=== PATIENT | male | born 1980 | race Caucasian/White ===

== ENCOUNTER 2021-08-17 10:04 | Emergency (ER) | payer MEDICAID, SELFPAY ==
--- NOTE | 2021-08-17 | ECG_ITS ---
Test Reason : CP Blood Pressure : / mmHG Vent. Rate : 074 BPM Atrial Rate : 074 BPM P-R Int : 120 ms QRS Dur : 090 ms QT Int : 348 ms P-R-T Axes : 073 -54 040 degrees QTc Int : 386 ms Normal sinus rhythm Left anterior fascicular block Abnormal ECG When compared with ECG of 06-SEP-2019 09:54, No significant change was found Referred By: Generic ED Physician Electronically Signed By:CHAD GLEZ
--- NOTE | ~2021-08-17 | XR_ITS ---
EXAMINATION: XR CHEST CLINICAL INFORMATION: Chest pain. COMPARISON: None TECHNIQUE: 2 views of the chest were obtained. FINDINGS: No significant abnormality is noted involving the heart, lungs, mediastinum, bony thorax or soft tissues. XR/XR chest 2V IMPRESSION: Unremarkable chest examination.
--- NOTE | ~2021-08-17 | US_ITS ---
EXAMINATION: US VENOUS ULTRASOUND WITH DOPPLER LOWER EXTREMITY, RIGHT CLINICAL INFORMATION: Right calf pain COMPARISON: None TECHNIQUE: Ultrasound of the deep veins is performed from the hip to the calf with compression sonography and color and pulse Doppler assessment. Spectral analysis with color-flow imaging is performed. FINDINGS: There is normal venous compression and respiratory variation and augmented flow. The visualized common femoral vein, superficial femoral vein, profunda femoral vein, popliteal vein, and the trifurcation region shows no evidence of deep venous thrombosis. There is no popliteal fossa cyst. US/US venous duplex LE RT IMPRESSION: No DVT demonstrated in the right lower extremity.
[2021-08-17 10:19] VITALS: BP 139/78; PULSE 93; RESP 18; TEMP 36.7; O2SAT 100; BMI 20.3
--- NOTE | 2021-08-17 11:00 | ED.GENADULT ---
HPI - General Adult General Chief complaint: Extremity Problem Stated complaint: leg pain - rule our DVT Time Seen by Provider: 08/17/21 10:41 Source: patient Mode of arrival: ambulatory Limitations: no limitations History of Present Illness HPI narrative: 40-year-old male with past medical history of asthma, a left lower extremity DVT not currently on anticoagulation here with complaints of right leg cramping and pain for 1-2 months. No injury or trauma. No swelling, redness or warmth. No fevers or chills. Patient tells me that he was diagnosed a left lower extremity DVT approximately 7 years ago which was unprovoked. He was on Coumadin for about 1 year and then this was discontinued by his primary care doctor. He is also complaining of some central chest pain which is worsened with deep breathing and movement. He tells me he has had this pain for about 1 year. He has been seen at [facility] and with a negative workup. He has not seen his primary care doctor for this. He denies any shortness of breath, fevers, chills, dizziness, nausea, vomiting, abdominal pain. Related Data Allergies Allergy/AdvReac Type Severity Reaction Status Date / Time cat dander [cats] Allergy Shortness Verified 08/17/21 10:19 of Breath dog dander [dogs] Allergy Shortness Verified 08/17/21 10:19 of Breath Review of Systems Review of Systems: Yes all other systems are reviewed and are negative Constitutional: Constitutional: Reports no additional constitutional complaints, Denies body ache(s), Denies chills, Denies fever(s), Denies headache(s) and Denies weakness Eyes: Eyes: Reports no additional eye complaints and Denies change in vision ENT: Reports system reviewed and no additional complaints, except as documented, Denies dizziness, Denies headache(s), Denies nasal congestion, Denies nasal discharge and Denies neck pain Cardiovascular: Cardiovascular: Reports no additional cardiovascular complaints, Reports chest pain, Denies leg edema and Denies dyspnea Comments: +calf pain Respiratory: Respiratory: Reports no additional respiratory complaints, Denies cough and Denies dyspnea Gastrointestinal: Gastrointestinal: Reports no additional gastrointestinal complaints, Denies abdominal pain, Denies diarrhea, Denies nausea and Denies vomiting Genitourinary: Genitourinary: Denies urinary incontinence Musculoskeletal: Musculoskeletal: Reports no additional musculoskeletal complaints, Denies back pain, Denies arthralgias, Denies joint swelling, Denies neck pain, Denies numbness and Denies tingling Integumentary/Breasts: Skin/Breast: Reports system reviewed and no additional complaints, except as docu and Denies rash Neurologic: Reports system reviewed and no additional complaints, except as documented, Denies Abnormal speech present, Denies dizziness, Denies headache(s), Denies numbness, Denies tingling and Denies weakness PMFSH Past Medical History Attestation statement: The following information was validated with the patient. Source: old records reviewed and nursing notes reviewed Medical History (Updated 08/17/21 @ 12:07 by [facility] NP) DVT (deep venous thrombosis) Social History Social History Advance Directives: No Advance Directives Information Provided: No Physical Exam Vital Signs: Vital Signs: Last Vital Signs Temp 98.1 F 08/17/21 10:19 Pulse 93 08/17/21 10:19 Resp 18 08/17/21 10:19 BP 139/78 08/17/21 10:19 Pulse Ox 100 08/17/21 10:19 Body Mass Index 20.3 Const: General: cooperative, healthy appearing, comfortable and no acute distress Orientation/consciousness: patient oriented x3 Limitations: no limitations HENMT: Head: Yes normal to inspection Ears: hearing grossly normal bilaterally General nose exam: Normal external nose present Face and sinus: Yes normal facial exam Mouth: Normal oral and palatal mucosa present Throat: Yes posterior oropharynx normal Eyes: General: appearance normal, both eyes and all related structures Pupils: Equal, round and reactive pupils present Neck: Neck: Yes normal visual inspection Chest: Other: Chest discomfort worsened with deep breathing, and trunk movement, and palpation. Chest palpation & inspection: normal inspection of the chest Resp: Effort & Inspection: normal respiratory effort Auscultation: clear to auscultation bilaterally Cardio: Rate: regular rate Rhythm: regular rhythm Peripheral pulses: Peripheral pulses 2+ throughout GI: Inspection: Yes normal to inspection Palpation (GI): Soft to palpation and nontender Auscultation: normal bowel sounds Back/Spine/Pelvis: Thoracic/Lumbar Spine: thoracic and lumbar spine normal to inspection Skin: General skin exam: no rashes or lesions noted Neuro: General: patient oriented x3, no focal motor deficits and normal sensation to monofilament Cranial nerves: Yes Equal, round and reactive pupils present Cognition (Neuro): normal cognition Speech: No Abnormal speech present Gait exam (Neuro): Normal gait present Motor exam (neuro): 5/5 motor strength present throughout Extrem: Other: Tenderness the right posterior calf. No warmth, redness, swelling. General: Yes normal to inspection Course Course Course Narrative: 40-year-old male here with complaints of right calf pain and pleuritic chest pain for a varied time. H/o DVT's unprovoked not on AC therapy. Will check labs, CXR, EKG, US RLE. 1230-labs unremarkable. Chest x-ray and EKG show no acute finding. Ultrasound is negative for DVT. Symptoms have been going on for months to years. Patient has not followed up with his primary care doctor after several ER visits. I discussed he should follow up closely with them for additional evaluation and possible testing. Reviewed worrisome signs and symptoms of when to return to the emergency department. Comfortable discharge home. Medical Decision Making MDM Narrative Medical decision making narrative: Atypical chest pain, PE DVT, muscle strain Less likely ACS with symptoms for more than 1 year with negative EKG and troponin Less likely PE with PERC score 1 for history of DVT but negative ultrasound today and negative D-dimer Medical Records Medical records reviewed: Yes I reviewed the patient's medical records. Lab Data Lab results reviewed: Yes I reviewed the patient's lab results. Result diagrams: 08/17/21 11:08 08/17/21 11:08 Labs: Lab Results 08/17/21 08/17/21 08/17/21 Range/Units 11:08 11:08 11:08 WBC 6.0 (4.8-10.8) X10*3/uL RBC 4.68 (4.60-5.80) X10*6/uL Hgb 15.2 (14.0-18.0) g/dl Hct 45.3 (42-52) % MCV 96.8 (80-98) fL MCH 32.5 (27.0-33.0) pg MCHC 33.6 (31.0-36.0) g/dl RDW 11.3 (11.0-16.0) % Plt Count 186 (160-400) X10*3/uL MPV 9.4 (9.4-12.4) fL Immature Gran % (Auto) 0.2 (0.0-0.4) % Neut % (Auto) 62.6 (45-73) % Lymph % (Auto) 23.9 (20-40) % [place] % (Auto) 6.4 (2-11) % Eos % (Auto) 6.2 H (0-4) % Baso % (Auto) 0.7 (0-2) % Lymph # (Auto) 1.4 (1.2-4.9) X10*3/uL [place] # (Auto) 0.4 (0.1-1.2) X10*3/uL Eos # (Auto) 0.4 (0.0-0.4) X10*3/uL Baso # (Auto) 0.0 (0.0-0.2) X10*3/uL Abs Immat Gran (auto) 0.01 (0.00-0.03) X10*3/uL Absolute Neuts (auto) 3.8 (2.0-8.3) X10*3/uL Absolute Nucleated RBC 0.000 (0.0-0.012) X10*3/uL Nucleated RBC % (auto) 0.0 (0.0-0.2) /100WBC D-Dimer 246 NG/ML Sodium 140 (135-145) mmol/L Potassium 4.7 (3.3-5.1) mmol/L Chloride 105 (96-108) mmol/L Carbon Dioxide 28 (22-29) mmol/L Anion Gap 12 (12-20) BUN 16 (9-16) mg/dL Creatinine 1.19 (0.5-1.4) mg/dL Estim Creat Clear Calc 73.0 Estimated GFR > 60 Random Glucose 104 (60-115) mg/dL Calcium 9.5 (8.4-10.2) mg/dL Total Bilirubin 1.2 H (0.0-1.0) mg/dL Direct Bilirubin 0.4 (0.0-0.5) mg/dL AST 24 (5-37) U/L ALT 22 (0-40) U/L Alkaline Phosphatase 57 (39-117) U/L Troponin I High Sens (<3.5-35.0) ng/L Total Protein 6.9 (6.5-8.0) g/dL Albumin 4.4 (3.5-5.0) g/dL 08/17/21 Range/Units 11:08 WBC (4.8-10.8) X10*3/uL RBC (4.60-5.80) X10*6/uL Hgb (14.0-18.0) g/dl Hct (42-52) % MCV (80-98) fL MCH (27.0-33.0) pg MCHC (31.0-36.0) g/dl RDW (11.0-16.0) % Plt Count (160-400) X10*3/uL MPV (9.4-12.4) fL Immature Gran % (Auto) (0.0-0.4) % Neut % (Auto) (45-73) % Lymph % (Auto) (20-40) % [place] % (Auto) (2-11) % Eos % (Auto) (0-4) % Baso % (Auto) (0-2) % Lymph # (Auto) (1.2-4.9) X10*3/uL [place] # (Auto) (0.1-1.2) X10*3/uL Eos # (Auto) (0.0-0.4) X10*3/uL Baso # (Auto) (0.0-0.2) X10*3/uL Abs Immat Gran (auto) (0.00-0.03) X10*3/uL Absolute Neuts (auto) (2.0-8.3) X10*3/uL Absolute Nucleated RBC (0.0-0.012) X10*3/uL Nucleated RBC % (auto) (0.0-0.2) /100WBC D-Dimer NG/ML Sodium (135-145) mmol/L Potassium (3.3-5.1) mmol/L Chloride (96-108) mmol/L Carbon Dioxide (22-29) mmol/L Anion Gap (12-20) BUN (9-16) mg/dL Creatinine (0.5-1.4) mg/dL Estim Creat Clear Calc Estimated GFR Random Glucose (60-115) mg/dL Calcium (8.4-10.2) mg/dL Total Bilirubin (0.0-1.0) mg/dL Direct Bilirubin (0.0-0.5) mg/dL AST (5-37) U/L ALT (0-40) U/L Alkaline Phosphatase (39-117) U/L Troponin I High Sens < 3.5 (<3.5-35.0) ng/L Total Protein (6.5-8.0) g/dL Albumin (3.5-5.0) g/dL Imaging Data Chest x-ray: Attestation: I personally reviewed and interpreted this imaging study as follows: Radiologist's impression: EXAMINATION: XR CHEST CLINICAL INFORMATION: Chest pain. COMPARISON: None TECHNIQUE: 2 views of the chest were obtained. FINDINGS: No significant abnormality is noted involving the heart, lungs, mediastinum, bony thorax or soft tissues. XR/XR chest 2V IMPRESSION: Unremarkable chest examination. Venous US: Attestation: I personally reviewed and interpreted this imaging study as follows: Radiologist's impression: FINDINGS: There is normal venous compression and respiratory variation and augmented flow. The visualized common femoral vein, superficial femoral vein, profunda femoral vein, popliteal vein, and the trifurcation region shows no evidence of deep venous thrombosis. ? There is no popliteal fossa cyst. US/US venous duplex LE RT IMPRESSION: No DVT demonstrated in the right lower extremity. ECG Data Attestation: I personally reviewed and interpreted this ECG as follows: Interpretation: Normal sinus rhythm with a rate of 74, normal [place], normal QRS, normal QT Discharge Plan Discharge Clinical Impression: Atypical chest pain, Muscle strain, Back pain Patient Disposition: Home, Self-Care Instructions: Muscle Strain (ED), Acute Low Back Pain (ED), Chest Wall Pain (ED) Additional Instructions: no heavy lifting or bending follow-up with your doctor for persistent symptoms motrin or tylenol for pain or fever Referrals: Jarek Dillon MD [Primary Care Provider] - 2 days Stand Alone Forms: Work/School Release Interventions: ED Discharge Assessment Last Done: 08/17/21 12:15 Discharge Date/Time: 08/17/21 12:15
[2021-08-17 11:12] LABS: MANUAL DIFF FLAG NO
[2021-08-17 11:17] LABS: Basophils Percent Auto 0.7 % (0-2); Eosinophils Absolute Auto 0.4 X10*3/uL (0.0-0.4); Eosinophils Percent Auto 6.2 % (0-4); Hematocrit 45.3 % (42-52); Hemoglobin 15.2 g/dl (14.0-18.0); Imm Gran Abs Auto 0.01 X10*3/uL (0.00-0.03); Imm Gran Pct Auto 0.2 % (0.0-0.4); Lymphocytes Absolute Auto 1.4 X10*3/uL (1.2-4.9); Lymphocytes Percent Auto 23.9 % (20-40); Mean Corpuscular HGB Conc 33.6 g/dl (31.0-36.0); Mean Corpuscular Hemoglobin 32.5 pg (27.0-33.0); Mean Corpuscular Volume 96.8 fL (80-98); Mean Platelet Volume 9.4 fL (9.4-12.4); Monocytes Absolute Auto 0.4 X10*3/uL (0.1-1.2); Monocytes Percent Auto 6.4 % (2-11); Neutrophils Absolute Auto 3.8 X10*3/uL (2.0-8.3); Neutrophils Percent Auto 62.6 % (45-73); Platelet Count 186 X10*3/uL (160-400); Red Blood Count 4.68 X10*6/uL (4.60-5.80); Red Cell Distribution Width 11.3 % (11.0-16.0)
[2021-08-17 11:23] LABS: D Dimer 246 NG/ML
[2021-08-17 11:44] LABS: Troponin-I High Sensitivity < 3.5 ng/L (<3.5-35.0)
[2021-08-17 11:45] LABS: Alanine Aminotransferase 22 U/L (0-40); Albumin Level 4.4 g/dL (3.5-5.0); Alkaline Phosphatase 57 U/L (39-117); Anion Gap 12 (12-20); Aspartate Amino Transferase 24 U/L (5-37); Bilirubin Direct 0.4 mg/dL (0.0-0.5); Bilirubin Total 1.2 mg/dL (0.0-1.0); Blood Urea Nitrogen 16 mg/dL (9-16); Calcium 9.5 mg/dL (8.4-10.2); Carbon Dioxide 28 mmol/L (22-29); Chloride 105 mmol/L (96-108); Estimated Glomerular Filt Rate > 60; Glucose Random 104 mg/dL (60-115); Potassium 4.7 mmol/L (3.3-5.1); Sodium 140 mmol/L (135-145); Total Protein 6.9 g/dL (6.5-8.0)
== END 2021-08-17 12:15 | disposition home or self-care (01) ==
PROVIDERS: Nurse Practitioner Family; Emergency Provider Emergency Medicine; PCP Internal Medicine
DX: R07.89 Other chest pain (principal); R60.0 Localized edema; M54.5 Low back pain; M79.604 Pain in right leg; Z79.899 Other long term (current) drug therapy
CPT/HCPCS: 36415; 71046; 80048; 80076; 84484; 85025; 85379; 93005; 93971; 99284

== ENCOUNTER 2025-11-10 08:33 | Outpatient (AMB) | payer OTHER, SELFPAY ==
--- NOTE | 2025-11-10 08:36 | A.OFFPC_ITS ---
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 Accompanied by: Self / Same As Patient Allergies cat dander (cats) Allergy (Verified 11/10/25 08:42) Shortness of Breath dog dander (dogs) Allergy (Verified 11/10/25 08:42) Shortness of Breath Tobacco use date assessed: 11/10/25 Dental Screening Dental Screen Date: 11/10/25 Did you have a dental visit in the last 12 months?: No Did you have a dental problem in the last 6 months where you did not have access to dental care?: No HPI HPI Comments History of Present Illness Details History of Present Illness - The patient is a 45-year-old male pres enting to establish care with a primary care provider and for management of his chronic conditions. - He has a history of asthma and severe allergies to cats and dogs, though he lives with cats. - He reports using his albuterol inhaler daily. - He previously used an Advair disk inha ler, which was helpful at a low dose but caused pain at a higher dose. - The patient requests a blood test for herpes, as his has the condition and he is unsure of his own status. - He denies any current lesions. - He has a remote history of a deep vein thrombosis treated with a blood thinner for close to a year and attributes it possibly to an injury. - He also requests general blood work to assess for vitamin deficiencies due to concerns about fatigue, which he feels may be starting due to his age. - He has no family history of colon canc er. Social History - Employment: The patient works for [employer] and is pursuing a CDL to drive buses. - Tobacco Use: He is a former smoker, rossi tinsley quit years ago. 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 - Substance Use: He reports a past histo ry of cannabis use but denies ever using injection drugs. - Living Situation: He lives with his wi fe and two children, ages 3 and 14. Results [facility] Medical History (Updated 11/10/25 @ 08:55 by Mansoor Barth MD) Hyperlipidemia DVT (deep venous thrombosis) Family History (Updated 11/10/25 @ 08:44 by BELLA Archuleta) Father No problems noted. Mother No problems noted. Social History (Updated 11/10/25 @ 08:44 by BELLA Archuleta) Housing: Apartment Alcohol intake: current Alcohol intake frequency: does not drink Patient Tobacco Use Status: Former Tobacco user service: No Current occupational status: employed Cognitive needs: No Hearing needs: No Vision needs: Yes (reading glasses) Questionnaire PHQ-9 Over the last 2 weeks, how often have you been bothered by any of the following problems? 1. Little interest or pleasure in doing things: not at all 2. Feeling down, depressed, or hopeless: not at all 3. Trouble falling or staying asleep, or sleeping too much: not at all 4. Feeling tired or having little energy: not at all 5. Poor appetite or overeating: not at all 6. Feeling bad about yourself - or that you are a failure or have let yourself or your family down: not at all 7. Trouble concentrating on things, such as reading the newspaper or watching television: not at all 8. Moving or speaking so slowly that other people could have noticed. Or the opposite - being so fidgety or restless that you have been moving around a lot more than usual: not at all 9. Thoughts that you would be better off or of hurting yourself in some way: not at all Total score: 0 Source: Developed by Drs. Frankie Garcia, Su Barney, Omkar Rodríguez and colleagues, with an educational massiel from [employer]. Thrive Questionnaire Date Thrive assessed: 11/10/25 I am a: Patient What is your living situation today?: I have a steady place to live Within the past 12 months, did the food you bought not last and you didn't have the money to get more?: Never true Within the past 12 months, did you worry whether your food would run out before you got money to buy more?: Never true Do you have trouble paying for medicines?: No Do you have trouble getting transportation to medical appointments?: No Do you have trouble paying your heating and electricity bill?: No Do you have trouble taking care of your child, family member or friend?: No Do you have trouble with day-to-day activities such as bathing, preparing meals, shopping, managing finances, etc.?: No Are you currently unemployed and looking for a job?: No Are you interested in more education?: No Please select the resources that you would like help with: None THRIVE Score: 0 AUDIT C Alcohol Use Questionnaire (AUDIT-C) 1. How often do you have a drink containing alcohol?: Never 3. How often do you have six or more drinks on one occasion?: Never Total Score: 0 LATRICIA-7 AMB Questionnaire LATRICIA-7 Date LATRICIA - 7 assessed: 11/10/25 Feeling nervous, anxious, or on edge: 0 = Not at all Not being able to stop or control worryin = Not at all Worrying too much about different things: 0 = Not at all Trouble relaxin = Not at all Being so restless that it is hard to sit still: 0 = Not at all Becoming easily annoyed or irritable: 0 = Not at all Feeling afraid as if something awful might happen: 0 = Not at all Total LATRICIA-7 score (0-4 normal; 5-9 mild; 10-14 moderate; 15-21 severe): 0 Source: Developed by Drs. Frankie Garcia, Su Barney, Omkar Rodríguez and colleagues, with an educational massiel from [employer]. Review of Systems Narrative Review of Systems - Constitutional: Reports fatigue. - Respiratory: Reports needing to use albuterol inhaler daily. - Gastrointestinal: Denies abdominal pain. - Integumentary: Denies any current skin lesions. - Allergic/Immunologic: Reports severe allergies to cats and dogs. Physical exam (Primary Care) Vital Signs: Last Vital Signs Temp 97.6 F 11/10/25 08:39 Pulse 88 11/10/25 08:39 Resp 14 11/10/25 08:39 BP 108/53 L 11/10/25 08:39 Pulse Ox 99 11/10/25 08:39 Oxygen Delivery Method Room Air 11/10/25 08:39 BMI result Body Mass Index 21.6 Tobacco/Smoking Status: Tobacco use Status Tobacco use date assessed 11/10/25 11/10/25 08:44 Patient Tobacco Use Status Former Tobacco user 11/10/25 08:44 PHQ-9: PHQ-9 Score PHQ-9: Total score 0 11/10/25 08:44 Thrive Assessment: Date of Thrive Assessment Date Thrive assessed 11/10/25 11/10/25 08:44 Narrative Physical Exam General: Cooperative and healthy appearing Nutritional Appearance: Well nourished Orientation/consciousness: Patient oriented x3 Limitations: No limitations Head: Normal to inspection General: Appearance normal, both eyes and all related structures Neck: Normal visual inspection Chest: Normal palpation of entire chest wall Respiratory: Normal respiratory effort Neurology: Patient oriented x3 Coding Level of Care Code New Pt Level 4 (28828) Add On Problem Visit Only Diagnoses Asthma J45.909 DVT (deep venous thrombosis) I82.409 Hyperlipidemia E78.5 Assessment & Plan Assessment & Plan (1) Asthma: Code(s): J45.909 - Unspecified asthma, uncomplicated Category: Medical Plan: Symbicort added to the regimen (2) DVT (deep venous thrombosis): Code(s): I82.409 - Acute embolism and thrombosis of unspecified deep veins of unspecified lower extremity Category: Medical Plan: This condition is from many years ago. He stopped the blood thinners a long time ago. Does not recall any specifics (3) Hyperlipidemia: Code(s): E78.5 - Hyperlipidemia, unspecified Category: Medical Plan: BW has been ordered Plan Plan - Will prescribe low-dose Symbicort inhaler, to be used twice daily as a controller medication for asthma. - A prescription for an albuterol inhaler will be provided for rescue use. - Will order fasting lab work, including a lipid panel, thyroid studies, and kidney and liver function tests. - Will order blood tests for herpes and HIV as requested by the patient. - Will order a urinalysis. - Will order a Cologuard test for colon cancer screening, as the patient declined a colonoscopy. - Prescriptions will be sent to the [facility] on [address]. - The patient declined an influenza shot. - Plan to follow up in six months. Discussion Notes I discussed the management of the patient's asthma, explaining that daily albuterol use suggests uncontrolled asthma. I recommended starting Symbicort as a daily controller medication to be used twice a day, which should reduce the need for albuterol, reserving it for rescue situations. I reassured him that Symbicort is not associated with the mental health side effects he was concerned about. Regarding his request for herpes testing, I educated him that a positive blood test only confirms past exposure and cannot determine the timing of infection or prove who transmitted it, especially without active lesions. We discussed colon cancer screening, as he is now 45. Given his lack of family history, I offered Cologuard as an alternative to colonoscopy, and he agreed to this option. I confirmed the lab orders, including routine fasting bloodwork, cholesterol, thyroid, and urine studies, along with the requested herpes and HIV tests. I explained that if this screening bloodwork is normal, it is assumed there are no significant vitamin deficiencies. We agreed on a follow-up appointment in six months to review his progress and results. Patient Instructions - Take your new asthma medication, Symbicort, twice every day. - Use your albuterol inhaler only if you are having asthma symptoms despite using Symbicort daily. - Your new prescriptions have been sent to the [facility] on [address] - You need to fast for your blood work, which means no food after midnight the night before the test. - You can go to the clinic on [address] to have your blood drawn; no appointment is necessary. - You will receive a Cologuard kit in the mail for colon cancer screening. - Follow the instructions in the kit to collect a sample and mail it back. - You declined the flu shot at this visit. - Please follow up in the office in six months. Orders: Orders Basic Metabolic Panel Today J45.909 - Unspecified asthma, uncomplicated Liver Panel Today J45.909 - Unspecified asthma, uncomplicated UA and rflx microscopic Today J45.909 - Unspecified asthma, uncomplicated HIV Ab/Ag Today J45.909 - Unspecified asthma, uncomplicated Herpes Simplex Virus Ab IgG Today J45.909 - Unspecified asthma, uncomplicated Complete Blood Count no Diff Today J45.909 - Unspecified asthma, uncomplicated Lipid Panel Today J45.909 - Unspecified asthma, uncomplicated Thyroid Stimulating Hormone Today J45.909 - Unspecified asthma, uncomplicated Referrals Cologuard Test Z12.11 - Encounter for screening for malignant neoplasm of colon Medications: New budesonide-formoterol 80-4.5 mcg/actuation (Symbicort) 1 inh inhalation BID 10.2 grams 1RF albuterol sulfate 90 mcg/actuation 2 puffs inhalation Q4H PRN 8.5 grams 1RF wheezing
[2025-11-10 08:39] VITALS: BP 108/53; PULSE 88; RESP 14; TEMP 36.4; O2SAT 99; BMI 21.6
== END 2025-11-10 09:07 | disposition home or self-care (01) ==
LOC: HO.HMCSH 08:33
PROVIDERS: PCP Internal Medicine; Visit Provider Internal Medicine
DX: J45.909 Unspecified asthma, uncomplicated (principal); I82.409 Acute embolism and thrombosis of unspecified deep veins of unspecified lower extremity; E78.5 Hyperlipidemia, unspecified